=== PATIENT | male | born 1970 | race Caucasian/White ===

== ENCOUNTER 2018-11-22 14:35 | Observation (INO) | payer OTHER, SELFPAY ==
[2018-11-22] VITALS (61 sets, daily range): BP systolic 110–151; BP diastolic 69–83; PULSE 70–134; RESP 13–31; TEMP 36–39.5; O2SAT 92–98
--- NOTE | 2018-11-22 14:46 | W.ED.GENAD ---
Discharge Plan Disposition Patient Disposition: [facility] INPATIENT Condition: Improving Discharge Details Chief Complaint: Fever Clinical Impression: Community acquired pneumonia, Acute hypokalemia, Hypomagnesemia Admit Date/Time: 11/22/18 17:24 Admit Provider: Chris Trent Attending Provider: Butch Feldman Primary Care Provider: Vonnie Fox ED Provider: Mykel Daley Hospital Course Hospital Course: 48 male here with several days of dry cough, fever, myalgia, fatigue, nausea. In ER leukocytosis and LLL infiltrate noted. Patient given Rocephin and Doxycycline and admittted for further manaagement. Also incidentally noted were Mg of 1.6 and K of 3.1; has received supplements of each. Today he is feeling better, lung sounds clear. WBC has dropped from 20 to 12. afebrile. He will have a course of doxy and cefuroxime, he does not need steroids at this time. Recommend follow up with PCP in 1-2 weeks and repeat CXR in a couple of weeks. He was counseled on smoking cessation and agrees to meet as an outpatient. 1) Pneumonia: Pneumonia, with adequate hemodynamics and oxygenation. Will continue antibiotics as is. Unclear why K and Mg low, perhaps just poor PO recently. Regardless have been properly supplemented. Patient is a smoker, will have prn nicotine patch. Discharge Instructions Instructions: How to Stop Smoking (GEN), Cigarette Smoking and Your Health (GEN), Antibiotic Resistant Bacteria (GEN), Community Acquired Pneumonia (GEN) Additional Instructions: Follow up with your primary in 1-2 weeks. Coughing is normal up to 6 weeks after pneumonia. STOP SMOKING Take all antibiotics as prescribed. Finish all antibiotics. Use Incentive spirometer daily up to AT LEAST 10 times a day. Seek medical attention immediately if you have Chest pain, shortness of breath, nausea, vomiting diarrhea or fever. Forms: Nursing Discharge Form Referrals: Vonnie Fox DO [Primary Care Provider] - (Please call the office on Sunday morning to schedule a follow up appointment for 1-2 weeks) Discharge Data Discharge Date/Time-TO BE ENTERED AT DEPARTURE: 11/22/18 20:03 Medical Decision Making <HERMELINDA Ribeiro - Last Filed: 12/09/18 01:08> Patient is a 48-year-old male presenting today with chief complaint of fevers and chills. He reports for the past 3 days he has had chills, fevers, general malaise, body aches. Denies any recent travel. States he has had a mild cough congestion. Patient is an active smoker, smokes three quarters a pack a day. Endorses nausea but no vomiting. No diarrhea. No change in urinary habits. Denies any abdominal pain. On exam, he appears flushed and fatigued. He is tachycardic with pulse of 134. Temp 39.5. Oxygen is low at 92% on room air. Patient has not been here historically, do not have comparable results. Will hydrate. Give Tylenol and Ibuprofen for fever. Will give Doxycyclne. Concerned for possible pneumonia as well as tick born illness. No known tick bite but does have opportunity for exposure. WBC 20.7, K 3.1, lactate 2.1, magnesium 1.6, CRP >25. Tick panel pending. CXR reviewed by radiologist: There are no prior comparison exams. There is a dense infiltrate seen in the left lower lobe. There is minimal left lower lobe scarring. The right lung appears clear. The heart size is normal. IMPRESSION: Left lower lobe pneumonia. Patient on second liter of fluids, replenished potassium orally. At the end of my shift, care transitioned to Dr. Daley. Plan for patient to be admitted to the hospital for continued IV antibiotics. Awaiting call from hospitalist to discuss admission. <Marty Encarnacion MD - Last Filed: 11/22/18 14:59> ECG Data Attestation: I personally reviewed and interpreted this ECG (s) as follows: Prior ECG tracings: not available for review Interpretation: sinus tachycardia, rate of 128, pr 120, qtc 429 <Mykel Daley DO - Last Filed: 11/22/18 17:32> The case was signed out to me by my colleague Pauline Thorpe. The patient had a notably thorough work-up, which showed evidence of left lower lobe pneumonia. The patient was started on 1 g of Rocephin and 100 mg of doxycycline ordered by Pauline. When going into reassess the patient the patient did also bring up that in the early he was diagnosed with tuberculosis, and took 9 months of antibacterial therapy for it. He has had no recurrent episodes then. He denies any history of HIV, hepatitis, or immunosuppression. 1 g of magnesium was added for treatment of the patient's low magnesium level. We did contact Dr. Trent, and discussed the case with him. He agrees with the assessment and plan. The patient will be admitted for community-acquired pneumonia, and further management. At time of disposition the patient remained hemodynamically stable, oxygen saturations are stable, vital signs are normalizing. I have extensively reviewed the treatment plan with the patient. I have addressed all patient concerns at this time. I have also discussed the plan with the admitting physician and they agree with the current assessment and plan and have agreed to assume responsibility for the patient. All parties demonstrate verbal understanding and agreement with our assessment and plan at this time. HPI <HERMELINDA Ribeiro - Last Filed: 12/09/18 01:08> General Mode of arrival: ambulatory. Date/Time Provider Initiated Documentation: 11/22/18 14:45. Limitations to Documentation: no limitations. Information obtained by: patient and RN notes reviewed. History of Present Illness 48 year old M presents to the emergency department with the chief complaint of fevers, body aches, cough, described as moderate, with intensity rated at 7. Quality is described as aching (diffuse pain, worse in extremities, back), Patient reports no radiation. Patient started experiencing this day(s) (3) and it has been constant. No relieving factors improve symptom(s), No exacerbating factors reported . Patient notes no other symptoms., cough, fever/chills (rigors), headaches, loss of appetite, nausea/vomiting (nausea, no vomiting), shortness of breath (intermittent, none currently) and weakness; denies chest pain and rash. Patient did receive the following treatments prior to arrival, none Related Data Home Medications Medication Instructions Recorded Confirmed doxycycline hyclate 100 mg PO BID #8 cap 11/23/18 Previous Rx's Medication Instructions Recorded doxycycline hyclate 100 mg PO BID #8 cap 11/23/18 Allergies Allergy/AdvReac Type Severity Reaction Status Date / Time No Known Allergies Allergy Unverified 11/22/18 14:40 General Stated Complaint: Fever JOSE: 2 Review of Systems <HERMELINDA Ribeiro - Last Filed: 12/09/18 01:08> Constitutional Reports as per HPI, Reports chills, Reports fatigue, Reports fever(s), Denies headache(s), Reports malaise and Reports poor appetite Eyes Reports as per HPI, Denies eye discharge and Denies irritation ENT Reports as per HPI and Denies headache(s) Cardiovascular Reports as per HPI, Denies chest pain and Denies dyspnea Respiratory Reports as per HPI, Reports cough, Denies hemoptysis, Denies pain on inspiration, Denies pain with cough, Denies dyspnea and Denies wheezing Gastrointestinal Reports as per HPI, Denies abdominal pain, Denies change in bowel habits, Reports nausea and Denies vomiting Musculoskeletal Reports back pain, Reports myalgias, Reports arthralgias, Denies limited range of motion and Denies stiffness Integumentary/Breasts Reports as per HPI and Denies rash Neurologic Reports as per HPI and Denies headache(s) Endocrine Reports fatigue Allergic/Immunologic Denies wheezing PFSH <HERMELINDA Ribeiro - Last Filed: 12/09/18 01:08> Medical History Tuberculosis (Chronic) Social History Smoking/Tobacco Use Status: Current every day Alcohol Intake: current Alcohol Intake frequency: holidays/special occasions only Substance use type: does not use Do you feel safe at home: Yes Do you feel safe in your relationship?: Yes Exam <HERMELINDA Ribeiro - Last Filed: 12/09/18 01:08> Const General: cooperative, healthy appearing, comfortable, no acute distress, well developed and well groomed Nutritional Appearance: average body habitus and well nourished Orientation: alert and awake [facility] Head: normal to inspection, normocephalic and atraumatic Ears: hearing grossly normal bilaterally, external ears normal and TM's normal bilaterally General nose exam: external nose normal and nares normal Face and sinus: normal facial exam, sinuses nontender and face symmetric Mouth: oral mucosae normal, lip normal, tongue normal, oropharynx normal and moist mucous membranes Teeth and gingiva: dentition normal Throat: posterior oropharynx normal, tonsils normal and uvula midline Eyes General: appearance normal, both eyes and all related structures Neck Neck: normal visual inspection, full ROM, no lymphadenopathy and no meningeal signs Resp Effort & Inspection: normal respiratory effort, able to speak in complete sentences and no respiratory distress Auscultation: clear to auscultation bilaterally, no rales, no rhonchi and no wheezes Cardio Rate: regular rate Rhythm: regular rhythm Heart Sounds: S1 normal and S2 normal GI Inspection: normal to inspection and non-distended Palpation: soft, no hepatosplenomegaly, not firm, no guarding and nontender Auscultation: normal bowel sounds Skin General skin exam: no rashes or lesions noted Neuro General: alert and awake Cognition: normal cognition Speech: speech normal Gait: normal gait Extrem General: normal to inspection, full ROM and no pedal edema Psych Appearance: grossly normal and well kempt Mental Status: mental status grossly normal Speech and Movement: speech and movement normal Course <HERMELINDA Ribeiro - Last Filed: 12/09/18 01:08> Vital Signs Temperature 39.5 C H 11/22/18 14:41 Pulse 134 H 11/22/18 14:41 Respiratory Rate 20 11/22/18 14:41 Blood Pressure 127/70 11/22/18 14:41 Pulse Oximetry 92 L 11/22/18 14:41 Temperature 39.5 C H 11/22/18 14:41 Temperature Source Oral 11/22/18 14:41 Pulse 134 H 11/22/18 14:41 Respiratory Rate 20 11/22/18 14:41 Respiratory Effort Non-Labored 11/22/18 14:44 Blood Pressure 127/70 11/22/18 14:41 Blood Pressure Position Supine 11/22/18 14:41 Pulse Oximetry 92 L 11/22/18 14:41 Oxygen Delivery Method Room Air 11/22/18 14:41 Oxygen Flow Rate 0 11/22/18 14:41 Pain Level 7 11/22/18 14:41 Sign Out <HERMELINDA Ribeiro - Last Filed: 12/09/18 01:08> Sign Out Data: Sign Out Comment: Concerned for pneumonia. At the end of my shift, care transitioned to Dr. Daley. Last updated by Pauline Thorpe PA at 11/22/18 15:56
--- NOTE | 2018-11-22 14:50 | DI.RAD_ITS ---
SYMPTOMS/DIAGNOSIS: FEVERS, COUGH PA AND LATERAL CHEST: There are no prior comparison exams. There is a dense infiltrate seen in the left lower lobe. There is minimal left lower lobe scarring. The right lung appears clear. The heart size is normal. IMPRESSION: Left lower lobe pneumonia.
--- NOTE | 2018-11-22 14:54 | ED.GENADUL_ITS ---
Discharge Plan Disposition Patient Disposition: [facility] INPATIENT Condition: Improving Discharge Details Chief Complaint: Fever Clinical Impression: Community acquired pneumonia, Acute hypokalemia, Hypomagnesemia Admit Date/Time: 11/22/18 17:24 Admit Provider: Chris Trent Attending Provider: Butch Feldman Primary Care Provider: Vonnie Fox ED Provider: Mykel Daley Hospital Course Hospital Course: 48 male here with several days of dry cough, fever, myalgia, fatigue, nausea. In ER leukocytosis and LLL infiltrate noted. Patient given Rocephin and Doxycycline and admittted for further manaagement. Also incidentally noted were Mg of 1.6 and K of 3.1; has received supplements of each. Today he is feeling better, lung sounds clear. WBC has dropped from 20 to 12. afebrile. He will have a course of doxy and cefuroxime, he does not need steroid s at this time. Recommend follow up with PCP in 1-2 weeks and repeat CXR in a couple of weeks. He was counseled on smoking cessation and agrees to meet as an outpatient. 1) Pneumonia: Pneumonia, with adequate hemodynamics and oxygenation. Will continue antibiotics as is. Unclear why K and Mg low, perhaps just poor PO recently. Regardless have been properly supplemented. Patient is a smoker, will have prn nicotine patch. Discharge Instructions Instructions: How to Stop Smoking (GEN), Cigarette Smoking and Your Health (GEN), Antibiotic Resistant Bacteria (GEN), Community Acquired Pneumonia (GEN) Additional Instructions: Follow up with your primary in 1-2 weeks. Coughing is normal up to 6 weeks after pneumonia. STOP SMOKING Take all antibiotics as prescribed. Finish all antibiotics. Use Incentive spirometer daily up to AT LEAST 10 times a day. Seek medical attention immediately if you have Chest pain, shortness of breath, nausea, vomiting diarrhea or fever. Forms: Nursing Discharge Form Referrals: Vonnie Fox DO [Primary Care Provider] - (Please call the office on Sunday morning to schedule a follow up appointment for 1-2 weeks) Discharge Data Discharge Date/Time-TO BE ENTERED AT DEPARTURE: 11/22/18 20:03 Medical Decision Making <HERMELINDA Ribeiro - Last Filed: 12/09/18 01:08> Patient is a 48-year-old male presenting today with chief complaint of fevers and chills. He reports for the past 3 days he has had chills, fevers, general malaise, body aches. Denies any recent travel. States he has had a mild cough congestion. Patient is an active smoker, smokes three quarters a pack a day. Endorses nausea but no vomiting. No diarrhea. No change in urinary habits. Denies any abdominal pain. On exam, he appears flushed and fatigued. He is tachycardic with pulse of 134. Temp 39.5. Oxygen is low at 92% on room air. Patient has not been here historically, do not have comparable results. Will hydrate. Give Tylenol and Ibuprofen for fever. Will give Doxycyclne. Concerned for possible pneumonia as well as tick born illness. No known tick bite but does have opportunity for exposure. WBC 20.7, K 3.1, lactate 2.1, magnesium 1.6, CRP >25. Tick panel pending. CXR reviewed by radiologist: There are no prior comparison exams. There is a dense infiltrate seen in the left lower lobe. There is minimal left lower lobe scarring. The right lung appears clear. The heart size is normal. IMPRESSION: Left lower lobe pneumonia. Patient on second liter of fluids, replenished potassium orally. At the end of my shift, care transitioned to Dr. Daley. Plan for patient to be admitted to the hospital for continued IV antibiotics. Awaiting call from hospitalist to discuss admission. <Marty Encarnacion MD - Last Filed: 11/22/18 14:59> ECG Data Attestation: I personally reviewed and interpreted this ECG (s) as follows: Prior ECG tracings: not available for review Interpretation: sinus tachycardia, rate of 128, pr 120, qtc 429 <Mykel Daley DO - Last Filed: 11/22/18 17:32> The case was signed out to me by my colleague Pauline Thorpe. The patient had a notably thorough work-up, which showed evidence of left lower lobe pneumonia. The patient was started on 1 g of Rocephin and 100 mg of doxycycline ordered by Pauline. When going into reassess the patient the patient did also bring up that in the early he was diagnosed with tuberculosis, and took 9 months of antibacterial therapy for it. He has had no recurrent episodes then. He denies any history of HIV, hepatitis, or immunosuppression. 1 g of magnesium was added for treatment of the patient's low magnesium level. We did contact Dr. Trent, and discussed the case with him. He agrees with the assessment and plan. The patient will be admitted for community-acquired pneumonia, and further management. At time of disposition the patient remained hemodynamically stable, oxygen saturations are stable, vital signs are normalizing. I have extensively reviewed the treatment plan with the patient. I have addressed all patient conc erns at this time. I have also discussed the plan with the admitting physician and they agree with the current assessment and plan and have agreed to assume responsibility for the patient. All parties demonstrate verbal understanding and agreement with our assessment and plan at this time. HPI <HERMELINDA Ribeiro - Last Filed: 12/09/18 01:08> General Mode of arrival: ambulatory . Date/Time Provider Initiated Documentation: 11/22/18 14:45 . Limitations to Documentation: no limitations . Information obtained by: patient and RN notes reviewed . History of Present Illness 48 year old M presents to the emergency department with the chief complaint of fevers, body aches, cough, described as moderate, with intensity rated at 7. Quality is described as aching (diffuse pain, worse in extremities, back), Patient reports no radiation. Patient started experiencing this day(s) (3) and it has been constant. No relieving factors improve symptom(s), No exacerbating factors reported . Patient notes no other symptoms., cough, fever/chills (rigors), headaches, loss of appetite, nausea/vomiting (nausea, no vomiting), shortness of breath (intermittent, none currently) and weakness; denies chest pain and rash. Patient did receive the following treatments prior to arrival, none Related Data Home Medications Medication Instructions Recorded Confirmed doxycycline hyclate 100 mg PO BID #8 cap 11/23/18 Previous Rx's Medication Instructions Recorded doxycycline hyclate 100 mg PO BID #8 cap 11/23/18 Allergies Allergy/AdvReac Type Severity Reaction Status Date / Time No Known Allergies Allergy Unverified 11/22/18 14:40 General Stated Complaint: Fever JOSE: 2 Review of Systems <HERMELINDA Ribeiro - Last Filed: 12/09/18 01:08> Constitutional Reports as per HPI, Reports chills, Reports fatigue, Reports fever(s), Denies headache(s), Reports malaise and Reports poor appetite Eyes Reports as per HPI, Denies eye discharge and Denies irritation ENT Reports as per HPI and Denies headache(s) Cardiovascular Reports as per HPI, Denies chest pain and Denies dyspnea Respiratory Reports as per HPI, Reports cough, Denies hemoptysis, Denies pain on inspiration, Denies pain with cough, Denies dyspnea and Denies wheezing Gastrointestinal Reports as per HPI, Denies abdominal pain, Denies change in bowel habits, Reports nausea and Denies vomiting Musculoskeletal Reports back pain, Reports myalgias, Reports arthralgias, Denies limited range of motion and Denies stiffness Integumentary/Breasts Reports as per HPI and Denies rash Neurologic Reports as per HPI and Denies headache(s) Endocrine Reports fatigue Allergic/Immunologic Denies wheezing PFS <HERMELINDA Ribeiro - Last Filed: 12/09/18 01:08> Medical History Tuberculosis (Chronic) Social History Smoking/Tobacco Use Status: Current every day Alcohol Intake: current Alcohol Intake frequency: holidays/special occasions only Substance use type: does not use Do you feel safe at home: Yes Do you feel safe in your relationship?: Yes Exam <HERMELINDA Ribeiro - Last Filed: 12/09/18 01:08> Const General: cooperative, healthy appearing, comfortable, no acute distress, well developed and well groomed Nutritional Appearance: average body habitus and well nourished Orientation: alert and awake [facility] Head: normal to inspection, normocephalic and atraumatic Ears: hearing grossly normal bilaterally, external ears normal and TM's normal bilaterally General nose exam: external nose normal and nares normal Face and sinus: normal facial exam, sinuses nontender and face symmetric Mouth: oral mucosae normal, lip normal, tongue normal, oropharynx normal and moist mucous membranes Teeth and gingiva: dentition normal Throat: posterior oropharynx normal, tonsils normal and uvula midline Eyes General: appearance normal, both eyes and all related structures Neck Neck: normal visual inspection, full ROM, no lymphadenopathy and no meningeal signs Resp Effort & Inspection: normal respiratory effort, able to speak in complete sentences and no respiratory distress Auscultation: clear to auscultation bilaterally, no rales, no rhonchi and no wheezes Cardio Rate: regular rate Rhythm: regular rhythm Heart Sounds: S1 normal and S2 normal GI Inspection: normal to inspection and non-distended Palpation: soft, no hepatosplenomegaly, not firm, no guarding and nontender Auscultation: normal bowel sounds Skin General skin exam: no rashes or lesions noted Neuro General: alert and awake Cognition: normal cognition Speech: speech normal Gait: normal gait Extrem General: normal to inspection, full ROM and no pedal edema Psych Appearance: grossly normal and well kempt Mental Status: mental status grossly normal Speech and Movement: speech and movement normal Course <HERMELINDA Ribeiro - Last Filed: 12/09/18 01:08> Vital Signs Temperature 39.5 C H 11/22/18 14:41 Pulse 134 H 11/22/18 14:41 Respiratory Rate 20 11/22/18 14:41 Blood Pressure 127/70 11/22/18 14:41 Pulse Oximetry 92 L 11/22/18 14:41 Temperature 39.5 C H 11/22/18 14:41 Temperature Source Oral 11/22/18 14:41 Pulse 134 H 11/22/18 14:41 Respiratory Rate 20 11/22/18 14:41 Respiratory Effort Non-Labored 11/22/18 14:44 Blood Pressure 127/70 11/22/18 14:41 Blood Pressure Position Supine 11/22/18 14:41 Pulse Oximetry 92 L 11/22/18 14:41 Oxygen Delivery Method Room Air 11/22/18 14:41 Oxygen Flow Rate 0 11/22/18 14:41 Pain Level 7 11/22/18 14:41 Sign Out <HERMELINDA Ribeiro - Last Filed: 12/09/18 01:08> Sign Out Data: Sign Out Comment: Concerned for pneumonia. At the end of my shift, care transitioned to Dr. Daley. Last updated by Pauline Thorpe PA at 11/22/18 15:56
[2018-11-22] MEDS: Normal Saline 1,000 ML 1000 ML IV ×2 (14:58→15:56)
[2018-11-22] MEDS: Acetaminophen 500 MG TAB 1000 MG PO (14:58)
[2018-11-22] MEDS: Doxycycline Hyclate 100 MG CAP PO (14:58)
[2018-11-22] MEDS: Ibuprofen 600 MG TAB PO (14:58)
[2018-11-22 15:09] LABS: Lactate-non-spesis 2.1 mmol/l (0.6-1.4)
[2018-11-22 15:17] LABS: Abs Immature Grans 0.12 k/cumm (0.0-0.09); Absolute Basophil Count 0.02 k/cumm (0.0-0.2); Basophils % 0.1; HCT 39.8 % (40.0-50.0); HGB 13.8 g/dL (13.5-17.5); Immature Grans % 0.6; Mean Corp. HGB Concentration 34.7 g/dL (32.0-36.0); Mean Corpuscular Hemoglobin 30.1 pg (27.0-33.0); Mean Corpuscular Volume 86.7 fL (80-95); Mean Platelet Volume 10.2 fL (8.0-11.0); Monocytes % 7.2; Neutrophils % 89.1; Platelet Count 241 x1000/uL (130-400); RBC 4.59 m/cumm (4.50-6.00); RBC Distribution Width 13.2 % (11.8-14.1); White Blood Cell Count 20.73 k/cumm (4.4-10.8)
[2018-11-22 15:19] LABS: Absolute Lymphocyte Count 0.62 k/cumm (1.2-3.4); Absolute Monocyte Count 1.49 k/cumm (0.11-0.7); Absolute Neutrophil Count 18.47 k/cumm (1.2-6.7)
[2018-11-22 15:31] LABS: ALT 25 U/L (12-78); AST 10 U/L (15-37); Alkaline Phosphatase 73 U/L (46-116); Anion Gap 13.5 mmol/L (3-11); BUN 8 mg/dL (7-18); Bilirubin, Total 0.7 mg/dL (0.2-1.0); CO2 24.5 mmol/L (21.0-32.0); CREATININE 1.14 mg/dL (0.70-1.30); Calcium 8.9 mg/dL (8.5-10.1); Chloride 98 mmol/L (98-107); Glucose 167 mg/dL (70-100); Magnesium 1.6 mg/dL (1.8-2.4); Potassium 3.1 mmol/L (3.5-5.1); Sodium 136 mmol/L (136-145); Total Protein 6.8 g/dL (6.4-8.2)
[2018-11-22 15:35] LABS: Troponin I < 0.05 ng/mL (0.00-0.06)
[2018-11-22 15:36] LABS: C-Reactive Protein > 25.00 mg/dL (0.0-0.3)
[2018-11-22] MEDS: Potassium Chloride 20 MEQ TABCR 40 MEQ PO (15:56)
[2018-11-22] MEDS: cefTRIAXone 1 GM/50 ML BAG 50 GM (16:19)
[2018-11-22 16:29] LABS: Procalcitonin 1.1 ng/mL
[2018-11-22] MEDS: MAGNESIUM SULFATE 1 GM/100 ML BAG IVPB (17:55)
--- NOTE | 2018-11-22 18:48 | HPE_ITS ---
Date of service: 11/22/18 Time of Service: 18:39 Assessment and Plan (1) Pneumonia: Current visit: Yes Status: Acute Pneumonia, with adequate hemodynamics and oxygenation. Will continue antibiotics as is. Unclear why K and Mg low, perhaps just poor PO recently. Regardless have been properly supplemented. Patient is a smoker, will have prn nicotine patch. History of Present Illness Chief Complaint: cough and fever Narrative: 48 male here with several days of dry cough, fever, myalgia, fatigue, nausea. In ER leukocytosis and LLL infiltrate noted. Patient given Rocephin and Doxycycline and admittted for further manaagement. Also incidentally noted were Mg of 1.6 and K of 3.1; has received supplements of each. Reports history of TB in , s/p nine month multidrug course off treatment. Review of Systems Review of Systems All systems reviewed & are unremarkable except as noted in HPI and below PFSH Social History Smoking/Tobacco Use Status: Current every day Alcohol Intake: current Alcohol Intake frequency: holidays/special occasions only Substance use type: does not use Do you feel safe at home: Yes Do you feel safe in your relationship?: Yes Meds Home Medications Medication Instructions Recorded Confirmed Type Unknown [No Known Home Meds] 11/22/18 11/22/18 History Allergies Allergy/AdvReac Type Severity Reaction Status Date / Time No Known Allergies Allergy Unverified 11/22/18 14:40 Exam Narrative Exam Narrative: Tmax 39.5, 114/72, 83, 19, 98% sat RA. HEENT unremarkable; neck supple; lungs few rales left base with pronounced E to A changes; heart RRR w/o murmur; abdomen soft NT; /rectal deferred; extr: no edema; neuro: Ox3, non- focal; skin no rashes jones lesions noted Results CXR: dense LLL consolidaation; EKG: sinus tach (? lead reversal V2 and V3), no acute changes Labs : 11/22/18 15:01 11/22/18 15:01 Laboratory Results - last 24 hr 11/22/18 11/22/18 11/22/18 15:01 15:01 15:01 WBC 20.73 H RBC 4.59 Hgb 13.8 Hct 39.8 L MCV 86.7 MCH 30.1 MCHC 34.7 RDW 13.2 Plt Count 241 MPV 10.2 Immature Gran % 0.6 Neutrophils % 89.1 Lymphocytes % 3.0 Monocytes % 7.2 Eosinophils % 0.0 Basophils % 0.1 Absolute Neutrophils 18.47 H Absolute Lymphocytes 0.62 L Absolute Monocytes 1.49 H Absolute Eosinophils 0.00 Absolute Basophils 0.02 Sodium 136 Potassium 3.1 L Chloride 98 Carbon Dioxide 24.5 Anion Gap 13.5 H BUN 8 Creatinine 1.14 Estimated GFR/1.73 m2 >= 60.00 Glucose 167 H Lactate 2.1 H Calcium 8.9 Magnesium 1.6 L Total Bilirubin 0.7 AST 10 L ALT 25 Alkaline Phosphatase 73 Troponin I < 0.05 C-Reactive Protein > 25.00 H Total Protein 6.8 Albumin 3.0 L Procalcitonin 11/22/18 15:01 WBC RBC Hgb Hct MCV MCH MCHC RDW Plt Count MPV Immature Gran % Neutrophils % Lymphocytes % Monocytes % Eosinophils % Basophils % Absolute Neutrophils Absolute Lymphocytes Absolute Monocytes Absolute Eosinophils Absolute Basophils Sodium Potassium Chloride Carbon Dioxide Anion Gap BUN Creatinine Estimated GFR/1.73 m2 Glucose Lactate Calcium Magnesium Total Bilirubin AST ALT Alkaline Phosphatase Troponin I C-Reactive Protein Total Protein Albumin Procalcitonin 1.1 Last Vital Signs Temp 36.4 C 11/22/18 18:32 Pulse 75 11/22/18 18:16 Resp 19 11/22/18 18:20 BP 114/72 11/22/18 18:16 Pulse Ox 98 11/22/18 18:20
[2018-11-23] MEDS: DOXYCYCLINE 100 MG in Normal Saline 100 ML IVPB ×2 (00:10→11:56)
[2018-11-23] MEDS: Normal Saline Flush 10 ML SYR IVP ×2 (00:10→11:55)
[2018-11-23 00:11] VITALS: BP 117/81; PULSE 70; RESP 16; TEMP 36.4; O2SAT 96
[2018-11-23 00:29] LABS: Bilirubin Negative (Negative); Blood Trace-lysed (Negative); Clarity Clear; Glucose Negative (Negative); Ketones Negative (Negative); Leukocyte Esterase Trace (Negative); Nitrite Negative (Negative); Specific Gravity 1.015 (1.005-1.025); Urobilinogen 0.2 EU/dL (Up TO 0.2)
[2018-11-23 00:38] LABS: Bacteria Negative HPF (Negative); C & S Indicated? No; Casts Negative LPF (Negative); Crystals Negative HPF (Negative); Epithelial Cells Few HPF (Negative); Mucus Negative (Negative); RBC 0-2 (0-2); WBC 0-2 HPF (0-5)
[2018-11-23 08:25] VITALS: BP 116/76; PULSE 80; RESP 19; TEMP 36.6; O2SAT 97
[2018-11-23 08:26] LABS: Abs Immature Grans 0.06 k/cumm (0.0-0.09); Absolute Basophil Count 0.04 k/cumm (0.0-0.2); Absolute Eosinophil Count 0.12 k/cumm (0.0-0.7); Absolute Lymphocyte Count 1.23 k/cumm (1.2-3.4); Absolute Monocyte Count 1.22 k/cumm (0.11-0.7); Basophils % 0.3; Eosinophils % 0.9; HCT 39.9 % (40.0-50.0); HGB 13.6 g/dL (13.5-17.5); Immature Grans % 0.5; Lymphocytes % 9.6; Mean Corp. HGB Concentration 34.1 g/dL (32.0-36.0); Mean Corpuscular Hemoglobin 29.6 pg (27.0-33.0); Mean Corpuscular Volume 86.7 fL (80-95); Mean Platelet Volume 10.4 fL (8.0-11.0); Monocytes % 9.5; Neutrophils % 79.2; Platelet Count 252 x1000/uL (130-400); RBC Distribution Width 13.6 % (11.8-14.1); White Blood Cell Count 12.81 k/cumm (4.4-10.8)
[2018-11-23 08:27] LABS: Absolute Neutrophil Count 10.15 k/cumm (1.2-6.7)
[2018-11-23 08:35] LABS: Anion Gap 10.6 mmol/L (3-11); BUN 8 mg/dL (7-18); CO2 24.4 mmol/L (21.0-32.0); CREATININE 0.84 mg/dL (0.70-1.30); Calcium 8.8 mg/dL (8.5-10.1); Chloride 107 mmol/L (98-107); Glucose 106 mg/dL (70-100); Potassium 3.6 mmol/L (3.5-5.1); Sodium 142 mmol/L (136-145)
[2018-11-23 09:19] LABS: Magnesium 2.1 mg/dL (1.8-2.4)
[2018-11-23] MEDS: Magnesium Oxide 400 MG TAB PO (10:15)
[2018-11-23] MEDS: Potassium Chloride 20 MEQ TABCR 40 MEQ PO (10:15)
[2018-11-23] MEDS: Nicotine 21 MG/24 HR PATCH TD (11:53)
[2018-11-23 12:05] VITALS: BP 120/79; PULSE 84; RESP 18; TEMP 36.7; O2SAT 97
--- NOTE | 2018-11-23 12:12 | PHARADMIT ---
Admission Pharmacy Clinical Review CO MMUNITY ACQUIRED PNEUMONIA Code Status Full Code Current Weight wgt-87.6 kg Renally Cleared and Narrow Therapeutic Index Meds CrCl~ 116 mL/min Meds-OK QTc Value / Action Taken QTc-429 na BP Control, Fever BP- 116/76 Tmax- 36.6C Electrolytes reviewed Na- 142 K+3.6 Mag- 2.1 DVT Prophylaxis none Opiate Usage / Scheduled Bowel Regimen Ordered No No Plt/SCr for Heparin / Enoxaparin Plts- 252 SCr-0.84 INR for Warfarin na H/H stable, WBC/Bands H&H- 13.5/39.9 WBC- 12.81 Antibiotic appropriateness Doxycycline, Rocephin Cultures and Sensitivities Blood-pending Surgical ABX d/c within 24 hr na DM control / Insulin Dosing BG- 106 Heart Failure (Check EF%) (DANGELO's, B-Block, Diuretics) NA IV to PO Switch no Home Meds Reviewed Yes Home Meds Not Ordered No Known Meds Comments
--- NOTE | 2018-11-23 14:25 | DSE_ITS ---
DS: Diagnosis Discharge Diagnosis (1) Pneumonia: Status: Acute Discharge Plan Disposition Patient Disposition: HOME Condition: Improving Discharge Details Reason For Visit: COMMUNITY ACQUIRED PNEUMONIA Admit Date/Time: 11/22/18 17:24 Admit Provider: Chris Trent Attending Provider: Chris Trent Primary Care Provider: Vonnie Fox Hospital Course Hospital Course: 48 male here with several days of dry cough, fever, myalgia, fatigue, nausea. In ER leukocytosis and LLL infiltrate noted. Patient given Rocephin and Doxycycline and admittted for further manaagement. Also incidentally noted were Mg of 1.6 and K of 3.1; has received supplements of each. Today he is feeling better, lung sounds clear. WBC has dropped from 20 to 12. afebrile. He will have a course of doxy and cefuroxime, he does not need steroids at this time. Recommend follow up with PCP in 1-2 weeks and repeat CXR in a couple of weeks. He was counseled on smoking cessation and agrees to meet as an outpatient. 1) Pneumonia: Pneumonia, with adequate hemodynamics and oxygenation. Will continue antibiotics as is. Unclear why K and Mg low, perhaps just poor PO recently. Regardless have been properly supplemented. Patient is a smoker, will have prn nicotine patch. Home Meds and New Rx's Prescriptions: New cefuroxime axetil 500 mg tablet 500 mg PO Q12H 10 Days Qty: 20 RF: 0 doxycycline hyclate 100 mg capsule 100 mg PO BID Qty: 8 RF: 0 Discharge Instructions Instructions: How to Stop Smoking (GEN), Cigarette Smoking and Your Health (GEN), Antibiotic Resistant Bacteria (GEN), Community Acquired Pneumonia (GEN) Additional Instructions: Follow up with your primary in 1-2 weeks. Coughing is normal up to 6 weeks after pneumonia. STOP SMOKING Take all antibiotics as prescribed. Finish all antibiotics. Use Incentive spirometer daily up to AT LEAST 10 times a day. Seek medical attention immediately if you have Chest pain, shortness of breath, nausea, vomiting diarrhea or fever. Activity:: Activity as Tolerated Equipment/Supplies:: No Equipment Needed Diet:: As Tolerated Discharge Orders Discharge Orders: Discharge Order (Routine); Ordered 11/23/18 Ordered By: Emma Dubose Exam Narrative Exam Narrative: sat RA. HEENT unremarkable; neck supple; lungs clear. heart RRR w/o murmur; abdomen soft NT; /rectal deferred; extr: no edema; neuro: Ox3, non-focal; skin no rashes jones lesions noted DS: Data Vitals/I&O Vitals and I&O: Vital Signs Temperature 36.7 C 11/23/18 12:05 Temperature Source Tympanic 11/23/18 12:05 Pulse 84 11/23/18 12:05 Pulse Rhythm Regular 11/23/18 08:30 Pulse 72 11/22/18 19:50 Respiratory Rate 18 11/23/18 12:05 Respiratory Effort Non-Labored 11/23/18 08:30 Respiratory Depth Normal 11/23/18 08:30 Respiratory Pattern Normal 11/23/18 08:30 Blood Pressure 120/79 11/23/18 12:05 Blood Pressure Mean 83 11/22/18 19:46 Blood Pressure Position Supine 11/22/18 14:41 Pulse Oximetry 97 11/23/18 12:05 Oxygen Delivery Method Room Air 11/23/18 12:05 Oxygen Flow Rate 0 11/23/18 12:05 Pain Level 0 11/23/18 12:05 Comment 11/23/18 08:25 Intake & Output 11/22/18 11/23/18 11/23/18 23:59 11:59 23:59 Intake Total 2200 / 2200 620 / 620 Output Total 740 / 740 400 / 400 Balance 1460 / 1460 220 / 220 Weight 87.6 kg Intake: IV 2200 / 2200 120 / 120 Oral 500 / 500 Output: Urine 740 / 740 400 / 400 Other: Urine Color Light Jaky Light Jaky Urine Appearance Clear Clear Urine Odor Normal Comment up at sandra to toilet. Denies difficulties Voiding Methods Toilet Completed studies during hospitalization [Text1]: Exam(s) a RAD:XR chest 2V PA & lateral SYMPTOMS/DIAGNOSIS: FEVERS, COUGH PA AND LATERAL CHEST: There are no prior comparison exams. There is a dense infiltrate seen in the left lower lobe. There is minimal left lower lobe scarring. The right lung appears clear. The heart size is normal. IMPRESSION: Left lower lobe pneumonia. Labs on day of discharge: Labs from last 24 hours 11/23/18 11/23/18 11/23/18 08:13 08:13 08:13 WBC 12.81 H D RBC 4.60 Hgb 13.6 Hct 39.9 L MCV 86.7 MCH 29.6 MCHC 34.1 RDW 13.6 Plt Count 252 MPV 10.4 Immature Gran % 0.5 Neutrophils % 79.2 Lymphocytes % 9.6 Monocytes % 9.5 Eosinophils % 0.9 Basophils % 0.3 Absolute Neutrophils 10.15 H Absolute Lymphocytes 1.23 Absolute Monocytes 1.22 H Absolute Eosinophils 0.12 Absolute Basophils 0.04 Sodium 142 Potassium 3.6 Chloride 107 Carbon Dioxide 24.4 Anion Gap 10.6 BUN 8 Creatinine 0.84 Estimated GFR/1.73 m2 >= 60.00 Glucose 106 H D Lactate Calcium 8.8 Magnesium 2.1 Total Bilirubin AST ALT Alkaline Phosphatase Troponin I C-Reactive Protein Total Protein Albumin Procalcitonin Urine Color Urine Clarity Urine pH Ur Specific [place] Urine Protein Urine Ketones Urine Blood Urine Nitrite Urine Bilirubin Urine Urobilinogen Ur Leukocyte Esterase Urine RBC Urine WBC Ur Epithelial Cells Urine Crystals Urine Bacteria Urine Casts Urine Mucus Ur Culture Indicated? Urine Glucose A.phagocytophil DNA PCR B. divergens/MO-1 PCR Babesia duncani (PCR) Babesia microti DNA PCR Borrelia (PCR) Lyme Disease Antibody E.chaffeensis DNA (PCR) E.ewingii/canis DNA PCR E. muris-like DNA (PCR) TB Test Ag - Nil 1 TB Test Ag - Nil 2 TB Test (QFT) Interp 11/23/18 11/22/18 11/22/18 00:00 16:11 15:01 WBC RBC Hgb Hct MCV MCH MCHC RDW Plt Count MPV Immature Gran % Neutrophils % Lymphocytes % Monocytes % Eosinophils % Basophils % Absolute Neutrophils Absolute Lymphocytes Absolute Monocytes Absolute Eosinophils Absolute Basophils Sodium Potassium Chloride Carbon Dioxide Anion Gap BUN Creatinine Estimated GFR/1.73 m2 Glucose Lactate Calcium Magnesium Total Bilirubin AST ALT Alkaline Phosphatase Troponin I C-Reactive Protein Total Protein Albumin Procalcitonin 1.1 Urine Color Yellow Urine Clarity Clear Urine pH 6.0 Ur Specific [place] 1.015 Urine Protein Negative Urine Ketones Negative Urine Blood Trace-lysed H Urine Nitrite Negative Urine Bilirubin Negative Urine Urobilinogen 0.2 Ur Leukocyte Esterase Trace H Urine RBC 0-2 Urine WBC 0-2 Ur Epithelial Cells Few Urine Crystals Negative Urine Bacteria Negative Urine Casts Negative Urine Mucus Negative Ur Culture Indicated? No Urine Glucose Negative A.phagocytophil DNA PCR B. divergens/MO-1 PCR Babesia duncani (PCR) Babesia microti DNA PCR Borrelia (PCR) Lyme Disease Antibody E.chaffeensis DNA (PCR) E.ewingii/canis DNA PCR E. muris-like DNA (PCR) TB Test Ag - Nil 1 Pending TB Test Ag - Nil 2 Pending TB Test (QFT) Interp Pending 11/22/18 11/22/18 11/22/18 15:01 15:01 15:01 WBC 20.73 H RBC 4.59 Hgb 13.8 Hct 39.8 L MCV 86.7 MCH 30.1 MCHC 34.7 RDW 13.2 Plt Count 241 MPV 10.2 Immature Gran % 0.6 Neutrophils % 89.1 Lymphocytes % 3.0 Monocytes % 7.2 Eosinophils % 0.0 Basophils % 0.1 Absolute Neutrophils 18.47 H Absolute Lymphocytes 0.62 L Absolute Monocytes 1.49 H Absolute Eosinophils 0.00 Absolute Basophils 0.02 Sodium Potassium Chloride Carbon Dioxide Anion Gap BUN Creatinine Estimated GFR/1.73 m2 Glucose Lactate 2.1 H Calcium Magnesium Total Bilirubin AST ALT Alkaline Phosphatase Troponin I C-Reactive Protein Total Protein Albumin Procalcitonin Urine Color Urine Clarity Urine pH Ur Specific [place] Urine Protein Urine Ketones Urine Blood Urine Nitrite Urine Bilirubin Urine Urobilinogen Ur Leukocyte Esterase Urine RBC Urine WBC Ur Epithelial Cells Urine Crystals Urine Bacteria Urine Casts Urine Mucus Ur Culture Indicated? Urine Glucose A.phagocytophil DNA PCR Pending B. divergens/MO-1 PCR Pending Babesia duncani (PCR) Pending Babesia microti DNA PCR Pending Borrelia (PCR) Pending Lyme Disease Antibody Pending E.chaffeensis DNA (PCR) Pending E.ewingii/canis DNA PCR Pending E. muris-like DNA (PCR) Pending TB Test Ag - Nil 1 TB Test Ag - Nil 2 TB Test (QFT) Interp 11/22/18 15:01 WBC RBC Hgb Hct MCV MCH MCHC RDW Plt Count MPV Immature Gran % Neutrophils % Lymphocytes % Monocytes % Eosinophils % Basophils % Absolute Neutrophils Absolute Lymphocytes Absolute Monocytes Absolute Eosinophils Absolute Basophils Sodium 136 Potassium 3.1 L Chloride 98 Carbon Dioxide 24.5 Anion Gap 13.5 H BUN 8 Creatinine 1.14 Estimated GFR/1.73 m2 >= 60.00 Glucose 167 H Lactate Calcium 8.9 Magnesium 1.6 L Total Bilirubin 0.7 AST 10 L ALT 25 Alkaline Phosphatase 73 Troponin I < 0.05 C-Reactive Protein > 25.00 H Total Protein 6.8 Albumin 3.0 L Procalcitonin Urine Color Urine Clarity Urine pH Ur Specific [place] Urine Protein Urine Ketones Urine Blood Urine Nitrite Urine Bilirubin Urine Urobilinogen Ur Leukocyte Esterase Urine RBC Urine WBC Ur Epithelial Cells Urine Crystals Urine Bacteria Urine Casts Urine Mucus Ur Culture Indicated? Urine Glucose A.phagocytophil DNA PCR B. divergens/MO-1 PCR Babesia duncani (PCR) Babesia microti DNA PCR Borrelia (PCR) Lyme Disease Antibody E.chaffeensis DNA (PCR) E.ewingii/canis DNA PCR E. muris-like DNA (PCR) TB Test Ag - Nil 1 TB Test Ag - Nil 2 TB Test (QFT) Interp 11/22/18 15:15 Blood Blood Culture - Pending 11/22/18 15:01 Blood Blood Culture - Pending Preliminary micro results at discharge 11/22/18 15:15 Blood Culture - Pending Blood 11/22/18 15:01 Blood Culture - Pending Blood [facility] Medical History Tuberculosis (Chronic) Social History Smoking/Tobacco Use Status: Current every day Alcohol Intake: current Alcohol Intake frequency: holidays/special occasions only Substance use type: does not use Do you feel safe at home: Yes Do you feel safe in your relationship?: Yes
--- NOTE | 2018-11-23 15:30 | PDOC.CMPRO ---
Care Management Progress Note Campos was readying for discharge when STEPHANY met with him. He reported he and his significant other are currently living in [place] with her mother until the couple can find a home together. 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 STEPHANY discussed smoking status with Campos who shared his significant other and her mother do not smoke at home but his co-workers at work do. He reported the longest he has ever quit was for four days and he has made multiple attempts in the past. He reports trying lozenges and patches. STEPHANY discussed smoking cessation and Campos reported being open to having the discussion with Dominic at [facility]. STEPHANY faxed referral to Dominic and relayed to Campos that he should receive a follow up call. No further needs required, Campos was being discharged and is independent at baseline in the community.
--- NOTE | 2018-11-23 17:47 | CMPROGNOTE_ITS ---
Care Management Progress Note Campos was readying for discharge when STEPHANY met with him. He reported he and his significant other are currently living in [place] with her mother until the couple can find a home together. 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 STEPHANY discussed smoking status with Campos who shared his significant other and her mother do not smoke at home but his co-workers at work do. He reported the longest he has ever quit was for four days and he has made multiple attempts in the past. He reports trying lozenges and patches. STEPHANY discussed smoking cessation and Campos reported being open to having the discussion with Dominic at [facility]. STEPHANY faxed referral to Dominic and relayed to Campos that he should receive a follow up call. No further needs required, Campos was being discharged and is independent at baseline in the community.
[2018-11-25 11:56] LABS: Lyme Ab w Rflx to Lyme Confirm Negative
[2018-11-25 14:52] LABS: TB Interpretation Negative (NEGAT); TB1 Ag minus Nil 0.04 IU/mL; TB2 Ag minus Nil 0.11 IU/mL
[2018-11-25 14:52] LABS: Anaplasma phagocytophilum Negative (Negative); B. miyamotoi PCR Negative (Negative); Babesia divergens/MO-1 Negative (Negative); Babesia duncani Negative (Negative); Babesia microti Negative (Negative); Ehrlichia chaffeensis Negative (Negative); Ehrlichia ewingii/canis Negative (Negative); Ehrlichia muris eauclairensis Negative (Negative)
== END 2018-11-23 16:10 | disposition home or self-care (01) ==
LOC: ER 17:52 → MS 20:51
PROVIDERS: Physician Assistant; Admitting Provider General Practice; Emergency Provider Student in an Organized Health Care Education/Training Program; PCP Student in an Organized Health Care Education/Training Program; Visit Provider Internal Medicine
DX: J18.9 Pneumonia, unspecified organism (principal); F17.210 Nicotine dependence, cigarettes, uncomplicated; E87.6 Hypokalemia; E83.42 Hypomagnesemia; Z86.11 Personal history of tuberculosis
CPT/HCPCS: 36415; 80048; 80053; 84145; 87040; 87798; 93005; 96361; 96365; 96366; 99222; 99239; 99285; 71046; 81003; 81015; 83605; 83735; 84484; 85025; 86140; 86480; 86618; 93010; 99217; 99219; G0378; J0696; J3475

== ENCOUNTER 2023-03-23 10:43 | Outpatient (CLI) | payer OTHER, SELFPAY ==
--- NOTE | 2023-03-23 10:00 | DI.RAD_ITS ---
Exam(s) XR KNEE LT 4V AP,LAT,YOEL,PAT EXAM: XR KNEE LT 4V AP,LAT,YOEL,PAT CLINICAL HISTORY: left knee pain. TECHNIQUE: 2D digital imaging was performed. COMPARISON: No exams were available for comparison FINDINGS: Four views. No evidence of fracture but there appears to be a joint effusion. Bone density normal. No osseous l esions. No obvious degenerative changes. Bone density is normal. IMPRESSION: No acute osseous findings but there does appear to be a joint effusion. May signify an internal dera ngement. DATA REPOSITORY: RADIATION DOSE DELIVERED:
== END 2023-03-23 10:44 | disposition home or self-care (01) ==
LOC: DIORS 10:43
PROVIDERS: Visit Provider Physician Assistant
DX: M25.562 Pain in left knee (principal)
CPT/HCPCS: 73564